=== PATIENT | male | born 1940 | race Caucasian/White ===

== ENCOUNTER → 2019-12-11 15:52 | Outpatient (CLI) | payer MEDICARE, OTHER, SELFPAY ==
--- NOTE | ~2019-12-11 | MR_ITS ---
EXAMINATION: MR knee LT wo con DATE: 12/11/2019 16:52 INDICATION: Left knee pain TECHNIQUE: Magnetic resonance imaging (MRI) of the left knee was performed without intravenous contra st. Sequences included coronal PD-weighted FSE, coronal PD-weighted FS FSE, sagittal T2-weighted FSE , sagittal PD-weighted FS FSE and axial PD weighted fat saturated FSE. COMPARISON: None. FINDINGS: Medial compartment: Mild extrusion of the medial meniscal body. Prominent increased intrasubstance signal which does not unambiguously contact the articular surface at the body of the medial meniscus consistent with myxoid degeneration. The posterior horn appears small which suggests sequela of prior partial meniscectomy. The anterior free edge appears mildly truncated with mild fraying. At the lateral side of the staff writer ior horn there is heterogeneous increased signal which extends to both the cephalad and caudal articu lar which is of less than fluid intensity which remains equivocal for scarring related to prior heale d tear or residual/recurrent tear. Partial-thickness cartilage loss throughout the weightbearing medi al femoral condyle with chondral surface regularity and subtle underlying cortical irregularity with subarticular edema at the central weightbearing medial femoral condyle. Additional partial thickness cartilage loss along the medial tibial plateau with focal fissuring with minimal underlying subarticu lar edema at the anterior aspect of the medial tibial plateau. Small to moderate size marginal osteop hytes are present. Lateral compartment: Less intense increased intrasubstance signal which is not contact the articular surface at the body o f the lateral meniscus consistent with myxoid degeneration without discrete tear. Mild partial thickn ess cartilage loss with smooth chondral surface without degenerative subchondral changes along the la teral margin of the posterior weightbearing lateral femoral condyle. Small to moderate size marginal osteophytes are present. Patellofemoral compartment: Shallow chondral fissuring at the cephalad aspect of the trochlear groove and lateral trochlea. Tiny patellar and small trochlear marginal osteophytes are present. Ligaments and tendons: Anterior and posterior cruciate ligaments are normal. The medial collateral ligament and fibular carmen ateral ligament complex are normal. The extensor mechanism is normal. The visualized medial and later al hamstring tendons as well as the iliotibial band are normal. Fluid: Physiologic amount of fluid in the joint space. No loose osteochondral bodies identified. Small Shea 's cyst. Osseous/other: Normal marrow signal. No fracture or pathologic marrow replacing process. IMPRESSION: 1. Small posterior horn of the medial meniscus suggesting prior partial meniscectomy. Fraying and velma ncation along the free edge and more irregular increased signal near the posterior root, the latter w hich could represent scarring related to prior repaired tear or more likely residual/recurrent comple x tear. 2. 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 3. Small Shea's cyst. Reviewed, dictated and finalized at location A. ER APPLICATOR IMPRESSION: 1. Small posterior horn of the medial meniscus suggesting prior partial menisce ctomy. Fraying and truncation along the free edge and more irregular increased signal near the posterior root, the latter which could represent scarring relat ed to prior repaired tear or more likely residual/recurrent complex tear. 2. Mild medial and patellofemoral compartment predominant tricompartmental oste oarthritis. 3. Small Shea's cyst.
== END ==
PROVIDERS: PCP Internal Medicine; Visit Provider Internal Medicine
DX: M71.21 Synovial cyst of popliteal space [Baker], right knee (principal); M19.012 Primary osteoarthritis, left shoulder; S83.242A Other tear of medial meniscus, current injury, left knee, initial encounter; X58.XXXA Exposure to other specified factors, initial encounter
CPT/HCPCS: 73721

== ENCOUNTER 2023-02-16 11:43 | Outpatient (CLI) | payer MEDICARE, OTHER, SELFPAY ==
[2023-02-16 18:59] LABS: Basophils Absolute Auto 0.1 K/mm3 (0.0-0.1); Basophils Percent Auto 1.2 % (0.2-1.2); Eosinophils Absolute Auto 0.3 K/mm3 (0-0.3); Eosinophils Percent Auto 3.9 % (0-4.4); Hematocrit 43.4 % (42.0-52.0); Hemoglobin 14.6 g/dL (14.0-18.0); Immature Granulocyte Absolute 0.02 K/mm3 (0.00-0.031); Immature Granulocyte Percent A 0.3 % (0-0.5); Lymphocytes Absolute Auto 2.69 K/mm3 (0.9-3.2); Lymphocytes Percent Auto 40.5 % (18.3-44.2); Mean Corpuscular HGB Conc 33.6 g/dl (32-36); Mean Platelet Volume 9.1 fl (7.4-10.4); Monocytes Percent Auto 14.3 % (2.6-8.5); Neutrophils Absolute Auto 2.6 K/mm3 (1.3-6.7); Neutrophils Percent Auto 39.8 % (45.5-73.1); Platelet Count Result 266 k/mm3 (150-375); Red Blood Count 4.43 M/mm3 (4.6-6.20); White Blood Count 6.6 K/mm3 (4.5-10.0)
[2023-02-16 19:28] LABS: Hemoglobin A1C 5.2 % (<5.7)
[2023-02-16 19:35] LABS: Creatinine Urine 72.4 mg/dL
[2023-02-16 19:41] LABS: MALB Creatinine Ratio 34.5 mg/g (0-30)
[2023-02-16 20:21] LABS: Alanine Aminotransferase 29 U/L (6-50); Albumin Level 4.2 g/dL (3.5-5.1); Alkaline Phosphatase 67 U/L (38-126); Anion Gap 7 mmol/L (8-16); Aspartate Amino Transferase 38 U/L (17-59); Bilirubin,Total 0.7 mg/dL (0.2-1.3); Blood Urea Nitrogen 25 mg/dL (9-20); Calcium 9.8 mg/dL (8.4-10.2); Carbon Dioxide 27 mmol/L (22-30); Chloride 105 mmol/L (98-107); Cholesterol 138 mg/dL (0-200); Estimated Glomerular Filt Rate 58; Glucose 99 mg/dL (65-110); HDL Direct 35 mg/dL; Potassium 4.4 mmol/L (3.4-5.0); Sodium 139 mmol/L (137-145); Triglycerides 126 mg/dL (<150)
[2023-02-16 20:32] LABS: LDL Cholesterol Direct 77 mg/dL
[2023-02-16 20:54] LABS: Prostate Specific Antigen 4.1 ng/mL (< OR = 4.0)
== END 2023-02-16 11:44 | disposition home or self-care (01) ==
LOC: ANHGOSHLAB 11:46
PROVIDERS: PCP Family Medicine; Visit Provider Family Medicine
DX: E78.5 Hyperlipidemia, unspecified (principal); I10 Essential (primary) hypertension; E11.9 Type 2 diabetes mellitus without complications; R53.83 Other fatigue; Z12.5 Encounter for screening for malignant neoplasm of prostate
CPT/HCPCS: 36415; 80053; 80061; 82043; 83036; 84153; 85025; G0103

== ENCOUNTER 2023-04-05 12:50 | Outpatient (CLI) | payer MEDICARE, OTHER, SELFPAY ==
[2023-04-05 17:28] LABS: Prostate Specific Antigen 3.7 ng/mL (< OR = 4.0)
== END 2023-04-05 12:51 | disposition home or self-care (01) ==
LOC: ANHPEDOT 12:52 → ANHGOSHLAB 12:55
PROVIDERS: PCP Family Medicine; Visit Provider Family Medicine
DX: R97.20 Elevated prostate specific antigen [PSA] (principal); Z12.5 Encounter for screening for malignant neoplasm of prostate
CPT/HCPCS: 36415; 84153; G0103

== ENCOUNTER 2024-02-15 11:17 | Outpatient (CLI) | payer MEDICARE, OTHER, SELFPAY ==
[2024-02-15 20:19] LABS: Alanine Aminotransferase 22 U/L (6-50); Albumin Level 4.2 g/dL (3.5-5.1); Alkaline Phosphatase 99 U/L (38-126); Anion Gap 6 mmol/L (4-12); Aspartate Amino Transferase 37 U/L (17-59); Bilirubin,Total 0.4 mg/dL (0.2-1.3); Blood Urea Nitrogen 32 mg/dL (9-20); Carbon Dioxide 25 mmol/L (22-30); Chloride 109 mmol/L (98-107); Cholesterol 138 mg/dL (0-200); Estimated Glomerular Filt Rate 53; Glucose 104 mg/dL (65-110); HDL Direct 44 mg/dL; Potassium 4.7 mmol/L (3.4-5.0); Sodium 140 mmol/L (137-145); Triglycerides 114 mg/dL (<150)
[2024-02-15 20:30] LABS: LDL Cholesterol Direct 83 mg/dL
[2024-02-15 20:46] LABS: Hemoglobin A1C 5.3 % (<5.7)
[2024-02-15 20:51] LABS: Prostate Specific Antigen 3.4 ng/mL (< OR = 4.0)
[2024-02-15 20:57] LABS: Creatinine Urine 131.6 mg/dL
[2024-02-15 20:58] LABS: MALB Creatinine Ratio 5.6 mg/g (0-30); Microalbumin Urine Random 7.4 mg/L (0-16.7)
== END 2024-02-15 11:18 | disposition home or self-care (01) ==
LOC: ANHGOSHLAB 11:19
PROVIDERS: PCP Family Medicine; Visit Provider Family Medicine
DX: E11.9 Type 2 diabetes mellitus without complications (principal); I10 Essential (primary) hypertension; Z12.5 Encounter for screening for malignant neoplasm of prostate; Z13.220 Encounter for screening for lipoid disorders; Z13.228 Encounter for screening for other metabolic disorders
CPT/HCPCS: 36415; 80053; 80061; 82043; 83036; 84153; G0103

== ENCOUNTER 2024-05-30 22:58 | Emergency (ER) | payer MEDICARE, OTHER, SELFPAY ==
--- NOTE | ~2024-05-30 | XR_ITS ---
Clinical Indication: Chest pain PA and lateral views of the chest: Comparison: 05/27/2004 Findings: Stable calcified right basilar granuloma. The lungs are otherwise clear, without evidence o f focal consolidation or pleural effusion. Cardiomediastinal silhouette is within normal limits. Bon es and soft tissues are unremarkable. Impression: No acute abnormality. Reviewed, dictated and finalized at location . Impression: No acute abnormality.
[2024-05-30 23:05] VITALS: BP 161/86; PULSE 71; RESP 16; TEMP 36.4; O2SAT 99
--- NOTE | 2024-05-30 23:10 | ECG_ITS ---
Test Date: 2024-05-30 23:07:25 Measurements Intervals [place] Rate: 71 P: 88 NV: 182 QRS: -33 QRSD: 89 T: 44 QT: 366 QTc: 400 Interpretive Statements SINUS RHYTHM MARKED LEFT AXIS DEVIATION [QRS AXIS < -30] POOR R-WAVE PROGRESSION LOW QRS VOLTAGE IN PRECORDIAL LEADS [QRS DEFLECTION < 1.0 mV IN CHEST LEADS] ABNORMAL ECG No previous ECG available for comparison Electronically Signed On 05-31-2024 07:21:31 CDT by Ryan Hannah M.D.
[2024-05-31] MEDS: ASPIRIN 81 MG CHEWABLE TABLET 324 MG PO (01:00)
[2024-05-31 01:02] LABS: Basophils Absolute Auto 0.1 K/mm3 (0.0-0.1); Basophils Percent Auto 0.4 % (0.2-1.2); Hemoglobin 14.2 g/dL (14.0-18.0); Immature Granulocyte Absolute 0.06 K/mm3 (0.00-0.031); Immature Granulocyte Percent A 0.4 % (0-0.5); Lymphocytes Absolute Auto 2.32 K/mm3 (0.9-3.2); Lymphocytes Percent Auto 16.7 % (18.3-44.2); Mean Corpuscular HGB Conc 33.8 g/dl (32-36); Mean Corpuscular Hemoglobin 33.1 pg (26-34); Mean Corpuscular Volume 97.9 fl (80-100); Mean Platelet Volume 9.3 fl (7.4-10.4); Monocytes Percent Auto 7.3 % (2.6-8.5); Neutrophils Absolute Auto 10.5 K/mm3 (1.3-6.7); Neutrophils Percent Auto 75.2 % (45.5-73.1); Platelet Count Result 277 k/mm3 (150-375); Red Blood Count 4.29 M/mm3 (4.6-6.20); Red Cell Distribution Width 11.9 % (11.5-14.5); White Blood Count 13.9 K/mm3 (4.5-10.0)
[2024-05-31 01:12] LABS: Alanine Aminotransferase 20 U/L (6-50); Albumin Level 4.6 g/dL (3.5-5.1); Alkaline Phosphatase 69 U/L (38-126); Anion Gap 13 mmol/L (4-12); Aspartate Amino Transferase 24 U/L (17-59); Bilirubin,Total 0.5 mg/dL (0.2-1.3); Blood Urea Nitrogen 28 mg/dL (9-20); Calcium 10.2 mg/dL (8.4-10.2); Carbon Dioxide 23 mmol/L (22-30); Chloride 100 mmol/L (98-107); Estimated CRCL calculation 43 ml/min; Estimated Glomerular Filt Rate 48; Glucose 165 mg/dL (65-110); Lipase 74 U/L (23-300); Potassium 4.9 mmol/L (3.4-5.0); Sodium 136 mmol/L (137-145)
[2024-05-31 01:24] LABS: INR 1.1; Prothrombin Time 14.6 Seconds (11.1-14.7)
[2024-05-31 01:25] LABS: Partial Thromboplastin Time 26.2 Seconds (22.3-36.8)
[2024-05-31 01:33] LABS: Troponin I < 0.012 ng/mL (0.000-0.034)
[2024-05-31] MEDS: BELLADONNA ALK/PHENOB ELIX 10 ML, MAG HYDROX/ALUMINUM HYD/SIMETH 30 ML, LIDOCAINE HCL 2... PO (02:18)
[2024-05-31] MEDS: MORPHINE SULFATE (*CRX) 4 MG/ML INJ 2 MG IV PUSH (02:18)
[2024-05-31] MEDS: PANTOPRAZOLE SODIUM IV 40 MG VIAL IV PUSH (02:18)
[2024-05-31 03:20] VITALS: BP 171/75; PULSE 69; RESP 15; O2SAT 96
[2024-05-31 03:21] VITALS: PULSE 69
--- NOTE | 2024-05-31 04:02 | ECG_ITS ---
Measurements Intervals [place] Rate: 64 P: 67 NV: 175 QRS: -27 QRSD: 84 T: 27 QT: 369 QTc: 382 Interpretive Statements SINUS RHYTHM LOW QRS VOLTAGE IN PRECORDIAL LEADS [QRS DEFLECTION < 1.0 mV IN CHEST LEADS] POOR R-WAVE PROGRESSION ABNORMAL ELECTROCARDIOGRAM Compared to ECG 05/30/2024 23:07:25 NO SIGNIFICANT DIFFERENCE Electronically Signed On 05-31-2024 07:25:37 CDT by Ryan Hannah M.D. [facility]
[2024-05-31 04:34] LABS: Troponin I < 0.012 ng/mL (0.000-0.034)
--- NOTE | 2024-05-31 05:13 | ED.GENADULT ---
HPI - General Adult General Chief complaint: Chest Pain Stated complaint: chest pain Time Seen by Provider: 05/31/24 01:11 History of Present Illness HPI narrative: Patient is a 3-year-old gentleman who presents emergency department chief complaint of chest discomfort nausea and shortness of breath. The patient reports symptoms started around 6:00 p.m. reports that noted was gas but still feels like pressure. The patient reports no prior history of cardiac disease but does report that he has history of hyperlipidemia hypertension type 2 diabetes and JESU. Related Data Allergies Allergy/AdvReac Type Severity Reaction Status Date / Time No Known Allergies Allergy Verified 02/07/24 14:02 Review of Systems Review of Systems: A 10 system review of systems was completed on the patient and is negative except for what is stated in the HPI. Nursing and ancillary documentation was reviewed. PMFSH Past Medical History Medical History Diabetes Hyperlipemia Hypertension JESU (obstructive sleep apnea) Type 2 diabetes mellitus Surgical History Surgical History H/O adenoidectomy H/O umbilical hernia repair History of tonsillectomy S/P left knee arthroscopy S/P right knee arthroscopy 05/2020 Family History Family History Sibling Family history of arthritis Father Liver disease Hemochromatosis Diabetes mellitus Social History Social History Smoking status: Never smoker Alcohol intake: current Drinks per week: 1 Alcohol use details: Chriss Álvarez Substance use: never Lack of Transportation: No Lack of Food: Never True Current Housing: I Have Housing Concerned About Future Housing: No Difficulty Paying Gas/Electric Bills: No Difficulty Paying for Meds: No Currently Unemployed: No Education: Bachelor's Degree Difficulty w/ Childcare or Family Care: No Living arrangements: with family Occupation/Education: retired Gender identity (if verbalized by the patient): Male Sexual Orientation (if Verbalized by the Patient): Straight or Heterosexual Exam Narrative: GENERAL: Well-appearing, well-nourished, and in no acute distress. HEAD: Normocephalic, atraumatic. EYES: PERRLA and EOMI. ENT: Nares clear, no rhinorrhea or epistaxis. Mucous membranes moist. NECK: Supple. CHEST: Clear to auscultation. No respiratory distress. HEART: Regular rate and rhythm. No murmur heard. Normal peripheral pulses. ABDOMEN: Soft, nontender, nondistended, normal active bowel sounds. EXTREMITIES: Normal range of motion. No edema. SKIN: Warm, dry, no rash. NEURO: No focal deficits. Alert and oriented x3. PSYCH: Normal mood and affect. Course Vital Signs Vital signs: Vital Signs Temperature 36.4 C 05/30/24 23:05 Pulse Rate 71 05/30/24 23:05 Respiratory Rate 16 05/30/24 23:05 Blood Pressure 161/86 H 05/30/24 23:05 Pulse Oximetry 99 05/30/24 23:05 Oxygen Delivery Room Air 05/30/24 23:05 Temperature 36.4 C 05/30/24 23:05 Pulse Rate 69 05/31/24 03:21 Respiratory Rate 15 05/31/24 03:20 Blood Pressure 171/75 H 05/31/24 03:20 Pulse Oximetry 96 05/31/24 03:20 Oxygen Delivery Room Air 05/30/24 23:05 Medical Decision Making MDM Narrative Medical decision making narrative: The ACS, gastroesophageal reflux disease, noncardiac chest pain, pneumothorax, EKG showed rate of [address] elevation or depression Laboratory studies showed a white count of 13.9 electrolytes showed a BUN of 28 creatinine 1.4 troponin was less than 0.012 for 0 hours and 3 hour lipase was normal Vital Signs Vital Signs: Vital Signs Temperature 36.4 C 05/30/24 23:05 Pulse Rate 71 05/30/24 23:05 Respiratory Rate 16 05/30/24
[2024-05-31 05:38] VITALS: BP 171/78; PULSE 65; RESP 14; TEMP 36.8; O2SAT 100
== END 2024-05-31 05:40 | disposition home or self-care (01) ==
PROVIDERS: Emergency Provider Emergency Medicine; PCP Family Medicine
DX: R07.89 Other chest pain (principal); I10 Essential (primary) hypertension; E11.9 Type 2 diabetes mellitus without complications; E78.5 Hyperlipidemia, unspecified; G47.33 Obstructive sleep apnea (adult) (pediatric); Z79.84 Long term (current) use of oral hypoglycemic drugs; Z79.899 Other long term (current) drug therapy; R94.31 Abnormal electrocardiogram [ECG] [EKG]
CPT/HCPCS: 36415; 71046; 80053; 83690; 84484; 85025; 85610; 85730; 93005; 96374; 96375; 99284; A9270; J2270; J2470

== ENCOUNTER 2024-06-20 07:21 | Outpatient (CLI) | payer MEDICARE, OTHER, SELFPAY ==
--- NOTE | ~2024-06-20 | CT_ITS ---
CT of the Abdomen and Pelvis: Indication: Abdominal pain Technique: 2.5 mm axial scans were obtained through the abdomen and pelvis following intravenous adm inistration of 100 cc of Omnipaque 350. Dose reduction technique was used on this scan by utilizing a utomated exposure control and iterative reconstruction technique. The dose-length product (DLP) was 1 098.27 mGy-cm. Findings: Scans through the lung bases demonstrate calcified right middle lobe granuloma. The liver, spleen, pancreas, adrenals and kidneys are within normal limits. Gallbladder is distended with multiple calcified gallstones, and probable mild diffuse gallbladder wall thickening. There are atherosclerotic calcifications of the aorta. No lymphadenopathy. No bowel obstruction or bowel wall thickening. There is no evidence to suggest acute appendicitis. Images through the pelvis were performed. Urinary bladder unremarkable. Prostate gland is significant ly enlarged, and indents the bladder base. No ascites. Bilateral L5 pars interarticularis defects are present, with 8 mm anterolisthesis of L5 over S1. Impression: Cholelithiasis and suspected superimposed acute cholecystitis. Correlate clinically. Consider HIDA sc an as indicated. Markedly enlarged prostate gland. Reviewed, dictated and finalized at location . Impression: Cholelithiasis and suspected superimposed acute cholecystitis. Correlate clinic ally. Consider HIDA scan as indicated. Markedly enlarged prostate gland.
== END 2024-06-20 07:22 | disposition home or self-care (01) ==
PROVIDERS: PCP Family Medicine; Visit Provider Family Medicine
DX: K80.00 Calculus of gallbladder with acute cholecystitis without obstruction (principal); N40.0 Benign prostatic hyperplasia without lower urinary tract symptoms
CPT/HCPCS: 74177; Q9967

== ENCOUNTER 2024-06-28 11:45 | Outpatient (CLI) | payer MEDICARE, OTHER, SELFPAY ==
[2024-06-28 13:22] LABS: Amylase 93 U/L (30-110)
== END 2024-06-28 11:46 | disposition home or self-care (01) ==
PROVIDERS: PCP Family Medicine; Visit Provider Surgery
DX: K80.10 Calculus of gallbladder with chronic cholecystitis without obstruction (principal)
CPT/HCPCS: 36415; 82150

== ENCOUNTER 2024-07-05 11:58 | Inpatient (IN) | payer MEDICARE, OTHER, SELFPAY ==
--- NOTE | 2024-06-27 14:12 | PC.NURSE ---
Report to the Outpatient Waiting Room, entrance under the green pavilion located off [facility], at time 6 AM on date _07/05/24 . Planned Procedure Time: _7:30 AM .? Time changes happen often and if your time is changed the preop area will call you the afternoon before. - You and your visitor will be asked to self-screen and do not enter if you have any COVID symptoms. Please call surgeon if you need to reschedule. - A mask is optional within the hospital at this time. Patients may have clear liquids (water, carbonated beverages, clear teas, apple juice) until 3 hours prior to surgery( 4:30AM) with a maximum of 20 ounces. - No food from midnight until time of surgery and no smoking - Infants may have breast milk until 4 hours before surgery, formula 6 hours prior to surgery. - Children will be allowed to drink immediately following surgery.? If applicable, please bring a bottle or sippy cup to assist with drinking. Juice, water, soda, and popsicles are readily available.? For infants on formula, please bring formula the day of surgery.? Pacifiers are allowed. Take only the following medications with a SIP of water on the morning of surgery: NONE DO NOT STOP ANY OF YOUR OTHER PRESCRIPTION MEDICATIONS PRIOR TO SURGERY EXCEPT THE FOLLOWING Medications to discontinue per physician __HOLD ALL VITAMINS AND SUPPLEMENTS 3 DAYS PRE OP.LAST DOSE 07/01/24 Please no make-up, nail american, hairspray, perfume, deodorant, or body powder the day of surgery.? No jewelry (including any body piercings) or valuables the day of surgery, leave them at home.? Please take a shower or bath the night before, or the morning of, surgery with an antibacterial soap.? Wear comfortable, loose fitting clothing.? Children are encouraged to wear pajamas. - Jewelry must be removed prior to entering the operating room.? Rings and piercings that are not removed may be cut off. - The hospital will not accept responsibility for valuables.? - Please leave all valuables, including medications, at home the day of surgery. If you are going home after surgery, a licensed racing car driver must drive you home.? - NO public transportation without another adult if you receive anesthesia. - We recommend that an adult stay with you for 24 hours following discharge. - We also recommend that you do not drive, make important decision, drink alcoholic beverages, or take any drugs that were not prescribed by your health care provider for at least 24 hours after your discharge time. For Pediatric surgeries, we recommend two adults accompany the child home. Follow any additional instructions given to you from your surgeon. Telephone instructions given to _PT AND MARCE and asked if any additional questions and then verbalized understanding. Patient advised to call surgeon office or pre surgery nurse liaison [phone] if any additional questions.
[2024-06-27 14:19] VITALS: BMI 27.5
[2024-07-05] VITALS (15 sets, daily range): BP systolic 101–148; BP diastolic 59–92; PULSE 69–104; RESP 12–20; TEMP 36.4–37.7; O2SAT 92–100; BMI 27.6
[2024-07-05] MEDS: LACTATED RINGERS 1,000 ML 30 ML IV CONT ×2 (06:45→10:37)
[2024-07-05] MEDS: INDOCYANINE GREEN 25 MG VIAL WITH DILUENT 3.75 MG IV PUSH (07:00)
[2024-07-05] MEDS: KETOROLAC 15 MG/ML VIAL (*BKC) IV PUSH (07:03)
[2024-07-05] MEDS: ACETAMINOPHEN 500 MG TABLET 1000 MG PO (07:03)
--- NOTE | 2024-07-05 07:07 | WPDANESEPPF ---
Anes - Initial Pre Proc Eval Procedure: Operation Date: 07/05/24 07:30 Proposed Procedures p Robotic Assisted Cholecystectomy - Serene Dey MD Date/Time: 07/05/24 07:07 Surgeon: Serene Dey MD Pre Op Diagnosis: chronic cholecystitis Patient Data Age: 83 Gender: M Height: 1.91 m Weight: 99.8 kg Allergies Allergy/AdvReac Type Severity Reaction Status Date / Time No Known Allergies Allergy Verified 07/05/24 07:05 Home Medications Medication Instructions Recorded Confirmed Type metformin 850 mg tablet 850 mg PO DAILY #90 tabs 03/05/24 06/27/24 Rx olmesartan 40 mg tablet 40 mg PO DAILY #90 tabs 06/26/24 06/27/24 Rx ascorbic acid (vitamin C) 500 mg 500 mg PO DAILY 06/27/24 06/27/24 History capsule calcium 600 mg capsule 600 mg PO DAILY 06/27/24 06/27/24 History cholecalciferol (vitamin D3) 50 50 mcg PO DAILY 06/27/24 06/27/24 History mcg (2,000 unit) tablet flaxseed 1,000 mg capsule 1,000 mg PO DAILY 06/27/24 06/27/24 History magnesium 200 mg tablet 400 mg PO HS 06/27/24 06/27/24 History multivitamin (Daily Multi-Vitamin 1 tablet PO DAILY 06/27/24 06/27/24 History tablet) rosuvastatin 40 mg tablet (Crestor) 40 mg PO HS 06/27/24 06/27/24 History vitamin B complex 1 tablet PO DAILY 06/27/24 06/27/24 History vitamin E 400 unit tablet 450 mg PO DAILY 06/27/24 06/27/24 History Patient hx anesthesia problems: none Family hx anesthesia problems: none Results Review: All pre-operative results and documents have been reviewed as part of the pre-operative evaluation. [facility] Past Medical History Medical History Diabetes Hyperlipemia Hypertension JESU (obstructive sleep apnea) Type 2 diabetes mellitus Surgical History Surgical History H/O adenoidectomy H/O umbilical hernia repair History of tonsillectomy S/P left knee arthroscopy S/P right knee arthroscopy 05/2020 Family History Family History Sibling Family history of arthritis Father Liver disease Hemochromatosis Diabetes mellitus Social History Social History Smoking status: Never smoker Alcohol intake: current Drinks per week: 2 Alcohol use details: Chriss Álvarez Substance use: never Lack of Transportation: No Lack of Food: Never True Current Housing: I Have Housing Concerned About Future Housing: No Difficulty Paying Gas/Electric Bills: No Difficulty Paying for Meds: No Currently Unemployed: No Education: Bachelor's Degree Difficulty w/ Childcare or Family Care: No Living arrangements: with family Occupation/Education: retired Gender identity (if verbalized by the patient): Male Sexual Orientation (if Verbalized by the Patient): Straight or Heterosexual Spiritual care concerns: No Anes - Eval Final PreProcedure Day of Procedure 07/05/24 07:07 Patient weight: overweight Heart: regular rate and rhythm Lungs: clear to auscultation Airway: Mallampati scale class II Neurological: alert and oriented Last oral intake: >/= 8 hours ASA classification: III Emergent: no Anesthetic plan: proceed Anesthesia type and monitoring: general ETT and standard monitoring Results Review: All pre-operative results and documents have been reviewed as part of the pre-operative evaluation. Informed Consent: The patient's anesthetic plan and its attendant risks and benefits were discussed with the patient/family/POA. Questions were solicited and answers provided to the satisfaction of the patient/family/POA.
[2024-07-05 07:18] LABS: Glucose Point of Care 122 mg/dl (65-105)
--- NOTE | 2024-07-05 07:23 | WPDHPUPDATE1 ---
History and Physical Update Update Date/Time: 07/05/24 07:23 History and Physical has been reviewed, including an updated exam of the patient. There are NO changes in the patient's condition. Risks, benefits, and alternatives have been discussed and questions answered. Patient agrees to proceed with procedure.
[2024-07-05] MEDS: ceFAZolin 2 GM/D5W 50 ML 2 GM/50 ML BAG IVPB (07:40)
[2024-07-05] MEDS: BUPIVACAINE/EPINEPHRINE 0.5% 10 ML VIAL 30 ML INFILTRATE (07:45)
--- NOTE | 2024-07-05 08:06 | SUR.OPER ---
Blood vial sent with DORIS Rosario and received by Melly
--- NOTE | 2024-07-05 10:29 | W.PM.PROC2 ---
Procedure Note - Detailed Date of Procedure 07/05/24 Pre-op Diagnosis Acute cholecystitis Post-op Diagnosis Other ( severe acute suppurative cholecystitis) Procedure Performed Robotic assisted cholecystectomy, extensive lysis of adhesions Surgeon Serene Dey MD Anesthesia General Indications 83-year-old male presenting to the office complaining of 1 episode of severe right upper quadrant abdominal pain. Workup, including CT, significant for acute cholecystitis, cholelithiasis. Findings Severe acute suppurative cholecystitis Description of Procedure The patient was taken to the operating room and placed in the supine position. After adequate induction of general anesthesia, the patient was prepped and draped in the normal sterile fashion. A time-out was then done to verify the patient's identity, as well as the procedure being performed. I began by making a 8 mm incision in the periumbilical region. A Veress needle was then placed in the peritoneal cavity and CO2 gas was insufflated. After adequate pneumoperitoneum was achieved, the Veress needle was removed and a 8 mm Optiview trocar was placed under direct visualization. Once into the abdominal cavity, the introducer was removed and the laparoscope was placed through this trocar site. Under direct visualization, I placed a further 8 mm port in the left mid abdomen and 2 additional 8 mm ports in the right mid abdomen. The robot was then docked to these ports sites. I then went to the console. A large inflammatory mass was noted in the right upper quadrant. Using very careful dissection with the cautery, I was able to take down these omental adhesions to both the gallbladder and liver. These adhesions were very friable and inflamed. Once dissected, the gallbladder was then identified and noted to be severely inflamed and distended. Given the amount of inflammation and distention, the gallbladder was decompressed with an ovarian needle. An additional 5 mm port was placed in the left lower abdomen to allow physical therapy assistant port and suction. A large amount purulent drainage was noted from the gallbladder. Once decompressed, I was able to place a grasper at the dome of the gallbladder and this was retracted up and over the liver. A 2nd retractor was used to grasp the infundibulum and retracted laterally. This allowed visualization and dissection of the triangle of Calot. There were many omental adhesions to the gallbladder and these were taken down with the cautery. I then began dissection around the triangle Calot. I first identified the cystic duct, I was able to visualize the entirety of the duct from its proximal insertion into the gallbladder to its distal junction with the common hepatic/common bile duct junction. I then used the firefly visualization at this point to confirm the anatomy. The proximal cystic duct was then further skeletonized, clipped, and transected. Next I visualized the cystic artery. Again the structure was skeletonized, clipped, and transected. I then again used firefly to confirm anatomy and no aberrant anatomy was noted. I then used the Bovie cautery to take down the peritoneal attachments of the gallbladder off the liver bed. This was very difficult given the amount of inflammation and friability of the gallbladder wall itself. Some of the back wall of the gallbladder peeled off and was left on the liver bed during dissection. Multiple large stones were noted. Once the gallbladder specimen was completely detached, an Endo pouch was placed through the left 8 mm port site and the gallbladder specimen and stones were placed in the endo-pouch and subsequently removed. Of note, the site was enlarged including the fascial opening to allow removal. I then re-examined the right upper quadrant. Hemostasis was noted in the liver bed and the clips were noted to be in good position on both the duct and the artery. No other pathology was seen in the right upper quadrant. The ri
[2024-07-05 11:05] LABS: Glucose Point of Care 209 mg/dl (65-105)
--- NOTE | 2024-07-05 12:15 | ADMGEN ---
This patient, Man Farah Jr., was admitted to 3 [facility] Surg Room 315-02. Patient/family oriented to hospital policies and general routines including ID bracelet, bed and alarms, visiting hours, pain management, procedures, bathroom and other care routines, personal items, smoking policy, room service/diet, and visiting hours. Information on how to activate the Rapid Response Team has been discussed. Patient/Family are encouraged to report perceived risks to care and to ask questions if they do not understand what they are told or what they should do.
[2024-07-05] MEDS: PIPERACILLN/TAZ 3.375GM/NS50ML 3.375 GM/50 ML BAG IVPB ×3 (12:32→23:42)
[2024-07-05] MEDS: LACTATED RINGERS 1,000 ML 100 ML IV CONT (13:10)
[2024-07-05] MEDS: HYDROcodone/acetaminophen (*CRX) 5-325 MG TABLET 1 TAB PO ×2 (13:11→20:45)
[2024-07-05] MEDS: ROSUVASTATIN 20 MG TABLET 40 MG PO (20:43)
[2024-07-05] MEDS: MAGNESIUM OXIDE 400 MG TABLET PO (20:43)
[2024-07-06 00:11] VITALS: BP 114/59; PULSE 92; RESP 22; TEMP 36.6; O2SAT 94
[2024-07-06] MEDS: HYDROcodone/acetaminophen (*CRX) 5-325 MG TABLET 1 TAB PO ×5 (04:18→22:19)
[2024-07-06 04:21] VITALS: BP 133/72; PULSE 94; RESP 20; TEMP 36.4; O2SAT 94
[2024-07-06] MEDS: PIPERACILLN/TAZ 3.375GM/NS50ML 3.375 GM/50 ML BAG IVPB ×3 (05:39→17:52)
[2024-07-06 07:26] LABS: Hematocrit 34.8 % (42.0-52.0); Hemoglobin 11.3 g/dL (14.0-18.0); Mean Corpuscular HGB Conc 32.5 g/dl (32-36); Mean Corpuscular Hemoglobin 32.5 pg (26-34); Mean Platelet Volume 9.1 fl (7.4-10.4); Platelet Count Result 263 k/mm3 (150-375); Red Blood Count 3.48 M/mm3 (4.6-6.20); Red Cell Distribution Width 12.4 % (11.5-14.5); White Blood Count 11.1 K/mm3 (4.5-10.0)
[2024-07-06 07:40] LABS: Alanine Aminotransferase 40 U/L (6-50); Albumin Level 3.3 g/dL (3.5-5.1); Alkaline Phosphatase 56 U/L (38-126); Anion Gap 10 mmol/L (4-12); Aspartate Amino Transferase 51 U/L (17-59); Bilirubin,Total 0.8 mg/dL (0.2-1.3); Blood Urea Nitrogen 26 mg/dL (9-20); Calcium 8.6 mg/dL (8.4-10.2); Carbon Dioxide 22 mmol/L (22-30); Chloride 101 mmol/L (98-107); Estimated CRCL calculation 38 ml/min; Estimated Glomerular Filt Rate 41; Glucose 142 mg/dL (65-110); Potassium 4.3 mmol/L (3.4-5.0); Sodium 133 mmol/L (137-145)
[2024-07-06] MEDS: OLMESARTAN MEDOXOMIL 20 MG TABLET 40 MG PO (08:20)
[2024-07-06] MEDS: VITAMIN E 400 UNIT CAPSULE PO (08:20)
[2024-07-06] MEDS: VITAMIN B COMPLEX CAPSULE 1 CAP PO (08:20)
[2024-07-06] MEDS: MULTIVITAMINS THERAPEUTIC TAB (*BKC) 1 TABLET PO (08:20)
[2024-07-06] MEDS: ASCORBIC ACID 500 MG TABLET PO (08:20)
[2024-07-06] MEDS: CHOLECALCIFEROL 1,000 UNITS TABLET 2000 UNITS PO (08:20)
[2024-07-06] MEDS: CALCIUM CARBONATE (OSCAL) 500 MG TABLET PO (08:20)
[2024-07-06] MEDS: ENOXAPARIN 40 MG/0.4 ML SYRINGE SUB-Q (08:20)
[2024-07-06 09:43] VITALS: BP 117/59; PULSE 100; RESP 16; TEMP 36.6; O2SAT 93
[2024-07-06 13:43] VITALS: BP 143/69; PULSE 95; RESP 14; TEMP 36.5; O2SAT 101
--- NOTE | 2024-07-06 14:42 | PM.PNGS ---
Progress Note: A&P Assessment and Plan (1) Acute cholecystitis: Code(s): K81.0 - Acute cholecystitis Status: Acute Assessment and Plan: severe cholecystitis, PT eval and tx, cont diet, home likely tomorrow Subjective Subjective Date/Time Seen: 07/06/24 14:42 Interval history: feels ok, still pretty weak, kriss diet, +bowel fxn Review of Systems Review of Systems: All systems reviewed & are unremarkable except as noted in HPI and below Exam Const: General: cooperative, comfortable and no acute distress Resp: Auscultation: diminished lung sounds Cardio: Rate: regular rate Rhythm: regular rhythm GI: Inspection: normal to inspection, distended and incision GI Palp: Yes abdominal tenderness, Yes Soft to palpation and Yes Tenderness to palpation present (GI) Other: JULIANA c mod s/s drainage Objective Data Vital Signs Vital Signs: Vital Signs - 24 hr 07/05/24 17:43 07/05/24 20:32 07/06/24 00:11 Temperature 37.0 C 37.7 C H 36.6 C Pulse Rate 99 104 H 92 Respiratory Rate 17 20 22 H Blood Pressure 128/67 101/59 L 114/59 L Pulse Oximetry 96 95 94 Oxygen Delivery 07/05/24 22:35 07/06/24 04:21 07/06/24 08:00 Temperature 36.4 C Pulse Rate 69 94 Respiratory Rate 20 Blood Pressure 133/72 Pulse Oximetry 92 94 Oxygen Delivery Autopap Room Air 07/06/24 09:43 07/06/24 13:43 Temperature 36.6 C 36.5 C Pulse Rate 100 95 Respiratory Rate 16 14 Blood Pressure 117/59 L 143/69 H Pulse Oximetry 93 101 H Oxygen Delivery Intake/Output Intake/Output: Intake & Output 07/03/24 07/04/24 07/05/24 07/06/24 23:59 23:59 23:59 23:59 Intake Total 2315 1405 Output Total 50 30 Balance 2265 1375 Meds/Results Medications: Active Medications Generic Name Dose Route Start Last Admin Trade Name Freq PRN Reason Stop Dose Admin Hydrocodone Bitart/Acetaminophen 1 tab 07/05/24 11:58 07/06/24 12:46 Hydrocodone/Acetaminophen (*Crx) 5-325 Mg Tablet PO 1 tab Q4H PRN Administration Pain Rated 4-6 Ascorbic Acid 500 mg 07/06/24 09:00 07/06/24 08:20 Ascorbic Acid 500 Mg Tablet PO 500 mg DAILY TEO Administration Calcium Carbonate 500 mg 07/06/24 09:00 07/06/24 08:20 Calcium Carbonate (Oscal) 500 Mg Tablet PO 500 mg QAM TEO Administration Diphenhydramine HCl 25 mg 07/05/24 11:58 Diphenhydramine Hcl Inj 50 Mg/Ml Vial IV PUSH Q6H PRN Itching Enoxaparin Sodium 40 mg 07/06/24 09:00 07/06/24 08:20 Enoxaparin 40 Mg/0.4 Ml Syringe SUB-Q 40 mg DAILY TEO Administration Hydromorphone HCl 1 mg 07/05/24 11:58 Hydromorphone Hcl Inj (*Crx) 1 Mg/Ml Syr IV PUSH Q2H PRN Breakthrough Pain Rated 7-10 or NPO Hydromorphone HCl 0.5 mg 07/05/24 11:58 Hydromorphone Hcl Inj (*Crx) 1 Mg/Ml Syr IV PUSH Q2H PRN Breakthrough Pain Rated 4-6 or NPO Ibuprofen 800 mg in 200 mls @ 400 mls/hr 07/05/24 11:58 Caldolor 800 Mg/200 Ml IVPB Q6H PRN Breakthrough Pain Rated 1-3 or NPO Piperacillin/Tazobactam/Dextrose 3.375 gm in 50 mls @ 100 mls/hr 07/05/24 12:30 07/06/24 12:44 Zosyn 3.375 Gm/Ns 50 Ml IVPB 100 mls/hr Q6HR TEO Administration Magnesium Oxide 400 mg 07/05/24 21:00 07/05/24 20:43 Magnesium Oxide 400 Mg Tablet PO 400 mg HS TEO Administration Metformin HCl 850 mg 07/06/24 09:00 07/06/24 08:20 Metformin Hcl 850 Mg Tablet PO 850 mg DAILY TEO Administration Multivitamins Therapeutic 1 tablet 07/06/24 09:00 07/06/24 08:20 Multivitamins Therapeutic Tab (*Bkc) PO 1 tablet DAILY TEO Administration Naloxone HCl 0.1 mg 07/05/24 11:58 Naloxone Hcl 0.4 Mg/Ml Vial IV PUSH Q2M PRN Opiate Reversal Olmesartan 40 mg 07/06/24 09:00 07/06/24 08:20 Olmesartan Medoxomil 20 Mg Tablet PO 40 mg QAM TEO Administration Ondansetron HCl 4 mg 07/05/24 11:58 Ondansetron Inj 4 Mg/2 Ml Vial IV PUSH Q4H PRN Nausea And Vomiting Chanell
[2024-07-06] MEDS: HYDROmorphone HCL INJ (*CRX) 1 MG/ML SYR IV PUSH (20:12)
[2024-07-06] MEDS: MAGNESIUM OXIDE 400 MG TABLET PO (20:14)
[2024-07-06] MEDS: ROSUVASTATIN 20 MG TABLET 40 MG PO (20:14)
[2024-07-06 20:51] VITALS: BP 136/64; PULSE 114; RESP 28; TEMP 37.2; O2SAT 94
[2024-07-06 23:00] VITALS: PULSE 63; RESP 21; O2SAT 94
[2024-07-07] MEDS: PIPERACILLN/TAZ 3.375GM/NS50ML 3.375 GM/50 ML BAG IVPB ×2 (00:04→05:59)
[2024-07-07] MEDS: HYDROcodone/acetaminophen (*CRX) 5-325 MG TABLET 1 TAB PO ×2 (03:11→08:37)
[2024-07-07 03:49] VITALS: PULSE 66; RESP 26; O2SAT 95
[2024-07-07] MEDS: HYDROmorphone HCL INJ (*CRX) 1 MG/ML SYR IV PUSH (06:03)
[2024-07-07] MEDS: ENOXAPARIN 40 MG/0.4 ML SYRINGE SUB-Q (08:25)
[2024-07-07] MEDS: VITAMIN B COMPLEX CAPSULE 1 CAP PO (08:26)
[2024-07-07] MEDS: OLMESARTAN MEDOXOMIL 20 MG TABLET 40 MG PO (08:26)
[2024-07-07] MEDS: CALCIUM CARBONATE (OSCAL) 500 MG TABLET PO (08:26)
[2024-07-07] MEDS: CHOLECALCIFEROL 1,000 UNITS TABLET 2000 UNITS PO (08:27)
[2024-07-07] MEDS: ASCORBIC ACID 500 MG TABLET PO (08:27)
[2024-07-07] MEDS: MULTIVITAMINS THERAPEUTIC TAB (*BKC) 1 TABLET PO (08:27)
[2024-07-07] MEDS: VITAMIN E 400 UNIT CAPSULE PO (08:27)
--- NOTE | 2024-07-07 10:20 | PM.DS ---
DS: Admitting Diagnosis Discharge Date 07/07/2024 Admitting Diagnosis Chronic calculous cholecystitis, type 2 diabetes, hypertension, obstructive sleep apnea DS: Discharge Diagnosis Discharge Diagnosis (1) Acute cholecystitis: Code(s): K81.0 - Acute cholecystitis Status: Acute (2) Chronic cholecystitis with calculus: Code(s): K80.10 - Calculus of gallbladder with chronic cholecystitis without obstruction Status: Acute (3) Type 2 diabetes mellitus: Qualifiers: Diabetes mellitus longterm insulin use: without terminal makeup operator use Diabetes mellitus complication status: without complication Qualified Code(s): E11.9 - Type 2 diabetes mellitus without complications Code(s): E11.9 - Type 2 diabetes mellitus without complications Status: Acute (4) Hypertension: Qualifiers: Hypertension type: primary hypertension Qualified Code(s): I10 - Essential (primary) hypertension Code(s): I10 - Essential (primary) hypertension Status: Acute (5) Obstructive sleep apnea (adult) (pediatric): Code(s): G47.33 - Obstructive sleep apnea (adult) (pediatric) Status: Acute DS: Summary Hospital Course Reason for hospitalization: Acute cholecystitis Hospital Course: This is an 83-year-old man who presented for robotic assisted laparoscopic cholecystectomy on 07/05/2024. He was found to have evidence of severe acute suppurative cholecystitis and surgery was very technically difficult and required extensive lysis of adhesions around the gallbladder. A drain was placed at the time of surgery and he was admitted to the hospital postoperatively. Antibiotics were continued postoperatively. On postop day 1 he was still feeling very weak but was tolerating his diet. His JULIANA drain was draining minimal serosanguineous output. Activity was gradually advanced as tolerated. On postop day 2 he was tolerating a low-fat diet and was able to get up to use the restroom with minimal assistance. His JULIANA drain continued to be serosanguineous and he was hemodynamically stable. He was discharged on 07/07/2024. JULIANA drain was removed prior to discharge. Status at Discharge Functional status at discharge: independent ambulation Overall status at discharge: patient is progressing back to baseline Time Spent with Patient Time attestation: Total time spent providing and/or coordinating discharge services: Time spent: Less than 30 minutes Exam Const: General: comfortable and no acute distress Orientation/consciousness: patient oriented x3 GI: Inspection: non-distended, incision (Intact with glue) and other (JULIANA drain with minimal serosanguineous output) DS: Data Data Completed and Pending Completed studies during hospitalization: Pending at discharge 07/05/24 07:43 Surgical [PTH] Routine Discharge Plan Discharge Attending physician on discharge: Serene Dey Discharging Clinician: Hector Portillo Patient Disposition: Home, Self-Care Activity: as tolerated Diet: diabetic Wound Care Instructions: incision open to air Discharge Instructions: Remember to use your incentive spirometer during your recovery to promote breathing. DISCHARGE INSTRUCTION SHEET FOR HERNIA, GALLBLADDER AND APPENDIX SURGERIES DR. DEY PATIENT TO TAKE HOME 1. May shower in 24 hours, no soaking in bath x 2weeks. 2. Call office for: Wound increasingly painful or bleeding Vomiting Fever of greater than 101 degrees 3. If no bowel movement for three days, take 1 oz. (30 ml) Milk of Magnesia or MiraLax 17g 1 to 2 times daily. 4. No heavy lifting > 10-15 pounds x 6 weeks for hernia repairs and 2 weeks for laparoscopic cholecystectomy or appendectomy. 5. No driving for 3 days or while taking narcotic pain medications. 6. Ice to surgical site for 48 hours (30 min on, then 30 min off). 7. Up walking 10-30 minutes three jim
== END 2024-07-07 12:00 | disposition home or self-care (01) | DRG 419 ==
LOC: ANH3MEDSUR 12:14
PROVIDERS: Admitting Provider Surgery; PCP Family Medicine; Visit Provider Surgery
PROC: 0FT44ZZ Resection of Gallbladder, Percutaneous Endoscopic Approach (ICD-10-PCS; CPT 47562; principal; 2024-07-05 07:30)
DX: K80.00 Calculus of gallbladder with acute cholecystitis without obstruction (principal); E11.9 Type 2 diabetes mellitus without complications; I10 Essential (primary) hypertension; G47.33 Obstructive sleep apnea (adult) (pediatric)
CPT/HCPCS: 36415; 80053; 82948; 85027; 86850; 86900; 86901; 88304; A9270; G0378; J0690; J1170; J1650; J1885; J2405; J2543; J2704; J3010; J7120

== ENCOUNTER 2024-12-26 08:42 | Outpatient (CLI) | payer MEDICARE, OTHER, SELFPAY ==
--- OUTSIDE RECORDS SUMMARY | 2024-12-26 09:01 | XMS_ITS | Encounter Summary ---
Author Organization [facility] Address [address] [place] [address] Care Team Providers Care Credit Control Officer Name Role Phone Unavailable Primary Care Provider Unavailabl e Encounter Details Date Type Department Care Team (Late st Contact Info) Description 02/17/2024 Lab Requisition [facility] - DermPath Lab [address] [place] [address] Jose F Vázquez MD [facility] DERMATOLOGY [address] [place] [phone] Neoplasm of uncertain behavior of skin Social History Tobacco Use Types Packs/Day Years Used Date Smoking Tobacco: Never Assessed Sex and Gender Information Value Date Recorded Sex Assigned at Not on file Gender Identity Not on file Sexual Orientation Not on file documented as of this encounter Plan of Treatment Not on file documented as of this encounter Procedures Procedure Name Priority Date/Time Associated Diagnosis Comments DERMATOPATHOLOGY Routine 02/17/2024 12:0 0 AM CDT Neoplasm of uncertain behavior of skin documented in this encounter Results * DERMATOPATHOLOGY (02/17/2024 12:00 AM CDT) Case Report Dermatopathology Report Case: [id number] Authorizing Provider: Jose F Vázquez MD Collected: 02/17/2024 12:00 AM Ordering Location: [facility] - Received: 02/20/2024 02:03 PM DermPath Lab Pathologist: Yessenia Van MD Specimen: Skin, right dorsal hand 5:14 PM CDT DERMATOPATHOLOGY LABORATORY Final Diagnosis Specimen A. SKIN, right dorsal hand: SEBORRHEIC KERATOSIS, MACULAR (L82.1) 5:14 PM CDT DERMATOPATHOLOGY LABORATORY Clinical History Neoplasm of Uncertain Behavior vs. Melanoma vs. Atypical Pigmented Lesion vs. Lentigo 5:14 PM CDT DERMATOPATHOLOGY LABORATORY Gross Description Specimen A: Received is one formalin filled container labeled with the patient's name and designated right dorsal hand. The specimen consists of a shave biopsy measuring 84u90p3 mm. Jar 0. 5:14 PM CDT DERMATOPATHOLOGY LABORATORY Microscopic Description Specimen A. SKIN, right dorsal hand: Sections show a relatively broad, flat proliferation of small keratinocytes. The surface is gently papillated, and there is increased basilar pigmentation. 5:14 PM CDT DERMATOPATHOLOGY LABORATORY Disclaimer An external and internal positive and negative controls are appropriate for the histochemical, immunohistochemical and immunofluorescence stain(s) in this case (if any), except where stated explicitly. The performance characteristics of the stain(s) cited in this report were developed and its performance characteristic determined by the Dermatopathology Laboratory at [facility], directed by Dr. Marce Osborne. These tests need not be, and therefore are not, approved by the [place] Food and Drug Administration. The tests are used for clinical purposes. Billing Codes Specimen Charges Stain Charges 07390 1 5:14 PM CDT DERMATOPATHOLOGY LABORATORY Embedded Images 5:14 PM CDT DERMATOPATHOLOGY LABORATORY Pathology/Cytolog y TISSUE SPECIMEN FROM SKIN / Unknown 02/17/2024 02/20/2024 2:03 PM CDT Jose F Vázquez MD LAB - PATHOLOGY/CYTO LOGY ORDERABLES DERMATOPATHOLOGY LABORATORY [facility] - Department of Dermatology [address], [address] [phone] documented in this encounter Visit Diagnoses Diagnosis Neoplasm of uncertain behavior of skin documented in this encounter
--- OUTSIDE RECORDS SUMMARY | 2024-12-26 09:01 | XMS_ITS | Clinical Summary ---
Author Organization [facility] Address [address] [place] [address] Care Team Providers Care Granite Polisher Apprentice Name Role Phone Unavailable Primary Care Provider Unavailabl e Source Comments [facility],non-owned Affiliates and Associated Physician Practices is amultiple site organization consisting of ambulatory clinics and hospital sitesin [place], [place], [place] and [place]. This disclosure is being madepursuant to the Care Everywhere program and may not contain all information available regarding this patient. Last updated 18.[facility] [employer] Social History Tobacco Use Types Packs/Day Years Used Date Smoking Tobacco: Never Assessed Sex and Gender Information Value Date Recorded Sex Assigned at Not on file Gender Identity Not on file Sexual Orientation Not on file Plan of Treatment Health Maintenance Due Date Last Done Comments MEDICARE AWV 12 MONTHS 1940 DTAP/TDAP/TD VACCINES (1 - Tdap) 1959 PNEUMOCOCCAL VACCINE 50+ (1 of 1 - PCV) 1990 ZOSTER VACCINE (1 of 2) 1990 Respiratory Syncytial Virus (RSV) Vaccine Pt: or over 60 yrs (1 - 1-dose 75+ series) 2015 COVID-19 VACCINE ( - 2023-2 5 season) 2024 INFLUENZA VACCINE (#1) 2024 DEPRESSION SCREENING 10/24/2024 HEPATITIS B VACCINE Aged Out No longe r eligible based on patient's age to complete this topic HIB VACCINE Aged Out No longer eligi ble based on patient's age to complete this topic HPV VACCINE Aged Out No longer eligi ble based on patient's age to complete this topic MENINGOCOCCAL (Group B) VACCINE Aged Out No longer eligible based on patient's age to complete this topic MENINGOCOCCAL VACCINE Aged Out No mike evelin eligible based on patient's age to complete this topic Man Farah Jr. Personal/Family Self 1940
--- OUTSIDE RECORDS SUMMARY | 2024-12-26 09:01 | XMS_ITS | Patient Health Summary ---
Author Organization [facility] Address [address] [place] [address] Care Team Providers Care Alcohol And Drug Counselor Name Role Phone Unavailable Primary Care Provider Unavailabl e Note from [facility],non-owned Affiliates and Associated Physician Practices is amultiple site organization consisting of ambulatory clinics and hospital sitesin [place], [place], [place] and [place]. This disclosure is being madepursuant to the Care Everywhere program and may not contain all information available regarding this patient. Last updated 18.[facility] [employer] Social History Tobacco Use Types Packs/Day Years Used Date Smoking Tobacco: Never Assessed Sex and Gender Information Value Date Recorded Sex Assigned at Not on file Gender Identity Not on file Sexual Orientation Not on file Procedures * DERMATOPATHOLOGY(Performed 02/17/2024) Performed for Neoplasm of uncertain behavior of skin Results * DERMATOPATHOLOGY (02/17/2024 12:00 AM CDT) Case Report Dermatopathology Report Case: [id number] Authorizing Provider: Jose F Vázquez MD Collected: 02/17/2024 12:00 AM Ordering Location: [facility] - Received: 02/20/2024 02:03 PM DermPath Lab Pathologist: Yessenia Van MD Specimen: Skin, right dorsal hand 4 5:14 PM CDT DERMATOPATHOLOGY LABORATORY Final Diagnosis Specimen A. SKIN, right dorsal hand: SEBORRHEIC KERATOSIS, MACULAR (L82.1) 4 5:14 PM CDT DERMATOPATHOLOGY LABORATORY Clinical History Neoplasm of Uncertain Behavior vs. Melanoma vs. Atypical Pigmented Lesion vs. Lentigo 4 5:14 PM CDT DERMATOPATHOLOGY LABORATORY Gross Description Specimen A: Received is one formalin filled container labeled with the patient's name and designated right dorsal hand. The specimen consists of a shave biopsy measuring [id number] mm. Jar 0. 4 5:14 PM T DERMATOPATHOLOGY LABORATORY Microscopic Description Specimen A. SKIN, right dorsal hand: Sections show a relatively broad, flat proliferation of small keratinocytes. The surface is gently papillated, and there is increased basilar pigmentation. 4 5:14 PM T DERMATOPATHOLOGY LABORATORY Disclaimer An external and internal positive and negative controls are appropriate for the histochemical, immunohistochemical and immunofluorescence stain(s) in this case (if any), except where stated explicitly. The performance characteristics of the stain(s) cited in this report were developed and its performance characteristic determined by the Dermatopathology Laboratory at [facility], directed by Dr. Marce Osborne. These tests need not be, and therefore are not, approved by the [place] Food and Drug Administration. The tests are used for clinical purposes. Billing Codes Specimen Charges Stain Charges 29736 1 4 5:14 PM CDT DERMATOPATHOLOGY LABORATORY Embedded Images 4 5:14 PM CDT DERMATOPATHOLOGY LABORATORY Pathology/Cytolog y TISSUE SPECIMEN FROM SKIN / Unknown 02/17/2024 02/20/2024 2:03 PM CDT Jose F Vázquez MD LAB - PATHOLOGY/CYTO LOGY ORDERABLES DERMATOPATHOLOGY LABORATORY [facility] - Department of Dermatology [address] [phone]
--- OUTSIDE RECORDS SUMMARY | 2024-12-26 09:01 | XMS_ITS | Referral Summary ---
Author Organization [facility] Address [address] [place] [address] Care Team Providers Care Farm Helper Name Role Phone Unavailable Primary Care Provider Unavailabl e Source Comments [facility],non-owned Affiliates and Associated Physician Practices is amultiple site organization consisting of ambulatory clinics and hospital sitesin [place], [place], [place] and [place]. This disclosure is being madepursuant to the Care Everywhere program and may not contain all information available regarding this patient. Last updated 18.[facility] Social History Tobacco Use Types Packs/Day Years Used Date Smoking Tobacco: Never Assessed Sex and Gender Information Value Date Recorded Sex Assigned at Not on file Gender Identity Not on file Sexual Orientation Not on file Plan of Treatment Not on file Man Farah Jr. Personal/Family Self 1940
[2024-12-26 12:57] LABS: Alanine Aminotransferase 26 U/L (6-50); Albumin Level 4.1 g/dL (3.5-5.1); Alkaline Phosphatase 108 U/L (38-126); Anion Gap 8 mmol/L (4-12); Aspartate Amino Transferase 96 U/L (17-59); Bilirubin,Total 0.4 mg/dL (0.2-1.3); Blood Urea Nitrogen 34 mg/dL (9-20); Calcium 9.8 mg/dL (8.4-10.2); Carbon Dioxide 28 mmol/L (22-30); Chloride 104 mmol/L (98-107); Cholesterol 115 mg/dL (0-200); Estimated Glomerular Filt Rate 52; Glucose 114 mg/dL (65-110); HDL Direct 38 mg/dL; Potassium 4.6 mmol/L (3.4-5.0); Sodium 140 mmol/L (137-145); Triglycerides 79 mg/dL (<150)
[2024-12-26 13:03] LABS: Basophils Absolute Auto 0.1 K/mm3 (0.0-0.1); Basophils Percent Auto 1.3 % (0.2-1.2); Eosinophils Absolute Auto 0.3 K/mm3 (0-0.3); Eosinophils Percent Auto 3.6 % (0-4.4); Hematocrit 40.3 % (42.0-52.0); Hemoglobin 13.1 g/dL (14.0-18.0); Immature Granulocyte Absolute 0.02 K/mm3 (0.00-0.031); Immature Granulocyte Percent A 0.3 % (0-0.5); Lymphocytes Absolute Auto 2.75 K/mm3 (0.9-3.2); Lymphocytes Percent Auto 34.5 % (18.3-44.2); Mean Corpuscular HGB Conc 32.5 g/dl (32-36); Mean Corpuscular Hemoglobin 31.9 pg (26-34); Mean Corpuscular Volume 98.1 fl (80-100); Mean Platelet Volume 9.3 fl (7.4-10.4); Monocytes Absolute Auto 0.9 K/mm3 (0.1-0.6); Monocytes Percent Auto 10.8 % (2.6-8.5); Neutrophils Percent Auto 49.5 % (45.5-73.1); Platelet Count Result 367 k/mm3 (150-375); Red Blood Count 4.11 M/mm3 (4.6-6.20); Red Cell Distribution Width 12.9 % (11.5-14.5)
[2024-12-26 13:09] LABS: LDL Cholesterol Direct 49 mg/dL
[2024-12-26 13:28] LABS: Prostate Specific Antigen 4.2 ng/mL (< OR = 4.0)
[2024-12-26 14:00] LABS: MALB Creatinine Ratio < 6.7 mg/g (0-30); Microalbumin Urine Random < 6.0 mg/L (0-16.7)
[2024-12-26 14:19] LABS: Vitamin D 25 Hydroxy 89.9 ng/mL
[2024-12-26 14:21] LABS: Hemoglobin A1C 5.8 % (<5.7)
== END 2024-12-26 08:43 | disposition home or self-care (01) ==
PROVIDERS: PCP Family Medicine; Visit Provider Family Medicine
DX: E11.9 Type 2 diabetes mellitus without complications (principal); I10 Essential (primary) hypertension; Z12.5 Encounter for screening for malignant neoplasm of prostate; E78.5 Hyperlipidemia, unspecified; E53.8 Deficiency of other specified B group vitamins; E55.9 Vitamin D deficiency, unspecified
CPT/HCPCS: 36415; 80053; 80061; 82043; 82306; 82607; 83036; 84153; 84443; 85025; G0103

== ENCOUNTER 2025-02-06 12:38 | Outpatient (CLI) | payer MEDICARE, OTHER, SELFPAY ==
--- OUTSIDE RECORDS SUMMARY | 2025-02-06 13:38 | XMS_ITS | Clinical Summary ---
Author Organization [facility] Address [address] [place] [address] Care Team Providers Care Chocolate Temperer Name Role Phone Unavailable Primary Care Provider Unavailabl e Source Comments [facility],non-owned Affiliates and Associated Physician Practices is amultiple site organization consisting of ambulatory clinics and hospital sitesin [place], [place], [place] and [place]. This disclosure is being madepursuant to the Care Everywhere program and may not contain all information available regarding this patient. Last updated 18.[facility] [employer] Social History Tobacco Use Types Packs/Day Years Used Date Smoking Tobacco: Never Assessed Sex and Gender Information Value Date Recorded Sex Assigned at Not on file Legal Sex Male 11:12 AM CDT Gender Identity Not on file Sexual Orientation [...] VACCINE ( - 2023-2 5 season) 2024 DEPRESSION SCREENING 10/24/2024 INFLUENZA VACCINE (Season Ended) 2025 HEPATITIS B VACCINE Aged Out No longe r eligible based on patient's age to complete this topic HIB VACCINE Aged Out No longer eligi ble based on patient's age to complete this topic HPV VACCINE Aged Out No longer eligi ble based on patient's age to complete this topic MENINGOCOCCAL (Group B) VACC INE SHARED DECISION-MAKING Aged Out No longer eligibl e based on patient's age to complete this topic MENINGOCOCCAL GROUPS A/C/Y/W VACCINE Aged Out No longer eligible b ased on patient's age to complete this topic Insurance MEDICARE SELF PAY NO INSURANCE Member Subscriber Plan / Payer (Ef fective for All Dates) Name:Man Farah Jr. Member ID:Not on file Relation to Subscriber:Not on file Name:MAN FARAH Subscriber ID:Not on file (Home) Address: [address] [place] [id number] Payer ID:Not on file Group ID:Not on file Type:Self Pay Address: [place], [place]
--- OUTSIDE RECORDS SUMMARY | 2025-02-06 13:38 | XMS_ITS | Encounter Summary ---
Author Organization [facility] Address [address] [place] [address] Care Team Providers Care Park Interpreter Name Role Phone Unavailable Primary Care Provider Unavailabl e Encounter Details Date Type Department Care Team (Late st Contact Info) Description 02/17/2024 Lab Requisition [facility] - DermPath Lab [address] [place] [phone] Jose F Vázquez MD [facility] DERMATOLOGY [address] [place] [phone] Neoplasm of uncertain behavior of skin [...] AM CDT) Case Report Dermatopathology Report Case: [id number] Authorizing Provider: Jose F Vázquez MD Collected: 02/17/2024 12:00 AM Ordering Location: [facility] - Received: 02/20/2024 02:03 PM [...] specimen consists of a shave biopsy measuring [id number] mm. Jar 0. 4 5:14 PM CDT DERMATOPATHOLOGY LABORATORY Microscopic Description [...] characteristic determined by the Dermatopathology Laboratory at [facility], directed by Dr. Marce Osborne. These tests need not be, and therefore are not, approved by the [place] Food and Drug Administration. The tests are used for clinical purposes. Billing Codes Specimen Charges Stain Charges 53250 1 4 5:14 PM CDT DERMATOPATHOLOGY LABORATORY Embedded Images 4 5:14 PM CDT DERMATOPATHOLOGY LABORATORY Pathology/Cytolog y TISSUE SPECIMEN FROM SKIN / Unknown 02/17/2024 02/20/2024 2:03 PM CDT us Jose F Vázquez MD LAB - PATHOLOGY/CYTOLOGY NURYS RON Final Result DERMATOPATHOLOGY LABORATORY [facility] - Department of Dermatology [address] [phone] documented in this encounter Visit Diagnoses Diagnosis Neoplasm of uncertain behavior of skin documented in this encounter
[2025-02-06 20:18] LABS: Alanine Aminotransferase 21 U/L (6-50); Albumin Level 4.2 g/dL (3.5-5.1); Alkaline Phosphatase 86 U/L (38-126); Anion Gap 7 mmol/L (4-12); Aspartate Amino Transferase 29 U/L (17-59); Bilirubin,Total 0.4 mg/dL (0.2-1.3); Blood Urea Nitrogen 31 mg/dL (9-20); Calcium 9.6 mg/dL (8.4-10.2); Carbon Dioxide 27 mmol/L (22-30); Chloride 104 mmol/L (98-107); Estimated Glomerular Filt Rate 50; Glucose 101 mg/dL (65-110); Potassium 4.8 mmol/L (3.4-5.0); Sodium 138 mmol/L (137-145)
== END 2025-02-06 12:39 | disposition home or self-care (01) ==
LOC: ANHGOSHLAB 12:40
PROVIDERS: PCP Family Medicine; Visit Provider Family Medicine
DX: R74.01 Elevation of levels of liver transaminase levels (principal); I10 Essential (primary) hypertension
CPT/HCPCS: 36415; 80053

== ENCOUNTER 2025-06-26 15:22 | Outpatient (CLI) | payer MEDICARE, OTHER, SELFPAY ==
--- OUTSIDE RECORDS SUMMARY | 2025-06-26 16:49 | XMS_ITS | Clinical Summary ---
Author Organization [facility] Address [address] [facility] [place] [address] Care Team Providers Care Accounts Payable Bookkeeper Name Role Phone Unavailable Primary Care Provider Unavailabl e Source Comments [facility],non-owned Affiliates and Associated Physician Practices is amultiple site organization consisting of ambulatory clinics and hospital sitesin [place], [place], [place] and [place]. This disclosure is being madepursuant to the Care Everywhere program and may not contain all information available regarding this patient. Last updated 18.[facility] [email or web address] Social History Tobacco Use Types Packs/Day Years [...] season) 2024 DEPRESSION SCREENING 10/24/2024 INFLUENZA VACCINE (#1) 2025 HEPATITIS B VACCINE Aged Out No [...] Subscriber ID:Not on file (Home) Address: [address] [place] [phone] Payer ID:Not on file Group ID:Not on file Type:Self Pay Address: [place], [place]
--- OUTSIDE RECORDS SUMMARY | 2025-06-26 16:49 | XMS_ITS | Encounter Summary ---
Author Organization [facility] Address [address] [place] [address] Care Team Providers Care Road Monkey Name Role Phone Unavailable Primary Care Provider Unavailabl e Encounter Details Date Type Department Care Team (Late st Contact Info) Description 02/17/2024 Lab Requisition [facility] - DermPath Lab [address] [place] [address] Jose F Vázquez MD [facility] D[facility]MAT[facility] [address] [place] [phone] Neoplasm of uncertain behavior of skin [...] AM CDT) Case Report Dermatopathology Report Case: [id number] Authorizing Provider: Jose F Vázquez MD Collected: 02/17/2024 12:00 AM Ordering Location: [facility] - Received: 02/20/2024 02:03 PM DermPath Lab Pathologist: Yessenia Van MD Specimen: Skin, right dorsal hand 5:14 PM CDT DERMATOPATHOLOGY LABORATORY Final Diagnosis Specimen A. SKIN, right dorsal hand: SEBORRHEIC KERATOSIS, MACULAR (L82.1) 4 5:14 PM CDT DERMATOPATHOLOGY LABORATORY at 1714 CDT Clinical History Neoplasm of Uncertain Behavior vs. Melanoma vs. Atypical Pigmented Lesion vs. Lentigo 4 5:14 PM CDT DERMATOPATHOLOGY LABORATORY Gross Description Specimen A: Received is one formalin filled container labeled with the patient's name and designated right dorsal hand. The specimen consists of a shave biopsy measuring [id number] mm. Jar 0. 4 5:14 PM CDT DERMATOPATHOLOGY LABORATORY Microscopic Description Specimen A. SKIN, right dorsal hand: Sections show a relatively broad, flat proliferation of small keratinocytes. The surface is gently papillated, and there is increased basilar pigmentation. 4 5:14 PM CDT DERMATOPATHOLOGY LABORATORY Disclaimer An external and internal positive and negative controls are appropriate for the histochemical, immunohistochemical and immunofluorescence stain(s) in this case (if any), except where stated explicitly. The performance characteristics of the stain(s) cited in this report were developed and its performance characteristic determined by the Dermatopathology Laboratory at [facility], directed by Dr. Marce Osborne. These tests need not be, and therefore are not, approved by the [place] Food and Drug Administration. The tests are used for clinical purposes. Billing Codes Specimen Charges Stain Charges 48440 1 4 5:14 PM CDT DERMATOPATHOLOGY LABORATORY Embedded Images 4 5:14 PM CDT DERMATOPATHOLOGY LABORATORY Pathology/Cytolog y TISSUE SPECIMEN FROM SKIN / Unknown 02/17/2024 02/20/2024 2:03 PM CDT us Jose F Vázquez MD LAB - PATHOLOGY/CYTOLOGY NURYS RON Final Result DERMATOPATHOLOGY LABORATORY [facility] - Department of Dermatology [address], [address] [phone] documented in this encounter Visit Diagnoses Diagnosis Neoplasm of uncertain behavior of skin documented in this encounter
[2025-06-26 18:40] LABS: Alanine Aminotransferase 21 U/L (6-50); Albumin Level 4.2 g/dL (3.5-5.1); Alkaline Phosphatase 99 U/L (38-126); Anion Gap 9 mmol/L (4-12); Aspartate Amino Transferase 32 U/L (17-59); Bilirubin,Total 0.5 mg/dL (0.2-1.3); Blood Urea Nitrogen 29 mg/dL (9-20); Calcium 10.5 mg/dL (8.4-10.2); Carbon Dioxide 25 mmol/L (22-30); Chloride 102 mmol/L (98-107); Estimated Glomerular Filt Rate 52; Glucose 89 mg/dL (65-110); Potassium 5.4 mmol/L (3.4-5.0); Sodium 136 mmol/L (137-145); Total Protein 7.3 g/dL (6.3-8.2)
[2025-06-26 19:03] LABS: Hemoglobin A1C 5.8 % (<5.7)
[2025-06-26 19:16] LABS: Prostate Specific Antigen 4.8 ng/mL (< OR = 4.0)
== END 2025-06-26 15:23 | disposition home or self-care (01) ==
LOC: ANHGOSHLAB 15:23
PROVIDERS: PCP Family Medicine; Visit Provider Family Medicine
DX: E11.9 Type 2 diabetes mellitus without complications (principal); E55.9 Vitamin D deficiency, unspecified; I10 Essential (primary) hypertension; Z12.5 Encounter for screening for malignant neoplasm of prostate; R97.20 Elevated prostate specific antigen [PSA]
CPT/HCPCS: 36415; 80053; 82306; 83036; 84153; G0103

== ENCOUNTER 2025-07-25 13:10 | Outpatient (CLI) | payer MEDICARE, OTHER, SELFPAY ==
--- OUTSIDE RECORDS SUMMARY | 2025-07-25 13:14 | XMS_ITS | Encounter Summary ---
Author Organization [facility] Address [address] [place] [address] Care Team Providers Care Curriculum Writer Name Role Phone Unavailable Primary Care Provider Unavailabl e Encounter Details Date Type Department Care Team (Late st Contact Info) Description 02/17/2024 Lab Requisition [facility] - DermPath Lab [address] [place] [address] Jose F Vázquez MD [facility] DERMATOLOGY [address] [place] [phone] Neoplasm of uncertain behavior of skin [...] AM CDT) Case Report Dermatopathology Report Case: [id number] Authorizing Provider: Jose F Vázquez MD Collected: 02/17/2024 12:00 AM Ordering Location: [facility] - Received: [...] specimen consists of a shave biopsy measuring [id number] mm. Jar 0. 4 5:14 PM CDT [...] characteristic determined by the Dermatopathology Laboratory at [facility], directed by Dr. Marce Osborne. These tests need not be, and therefore are not, approved by the [place] Food and Drug Administration. The tests are used for clinical purposes. Billing Codes Specimen Charges Stain Charges 79579 1 4 5:14 PM CDT DERMATOPATHOLOGY LABORATORY Embedded Images 4 5:14 PM CDT DERMATOPATHOLOGY LABORATORY Pathology/Cytolog y TISSUE SPECIMEN FROM SKIN / Unknown 02/17/2024 02/20/2024 2:03 PM CDT us Jose F Vázquez MD LAB - PATHOLOGY/CYTOLOGY NURYS RON Final Result DERMATOPATHOLOGY LABORATORY [facility] - Department of Dermatology [address] [phone] documented in this encounter Visit Diagnoses Diagnosis Neoplasm of uncertain behavior of skin documented in this encounter
--- OUTSIDE RECORDS SUMMARY | 2025-07-25 13:14 | XMS_ITS | Clinical Summary ---
Author Organization [facility] Address [address] [place] [address] Care Team Providers Care Chief Recordist Name Role Phone Unavailable Primary Care Provider Unavailabl e Source Comments [facility],non-owned Affiliates and Associated Physician Practices is amultiple site organization consisting of ambulatory clinics and hospital sitesin [place], [place], [place] and [place]. This disclosure is being madepursuant to the Care Everywhere program and may not contain all information available regarding this patient. Last updated 18.[facility] [employer] Social History Tobacco Use Types Packs/Day Years [...] yrs (1 - 1-dose 75+ series) 2015 DEPRESSION SCREENING 10/24/2024 COVID-19 VACCINE ( - 2023-2 5 season) 2025 INFLUENZA VACCINE (#1) 2025 HEPATITIS B VACCINE [...] age to complete this topic Insurance MEDICARE [employer] Address: [address] [phone] SELF PAY NO INSURANCE Member Subscriber Plan / Payer (Ef fective for All Dates) Name:Man Farah Jr. Member ID:Not on file Relation to Subscriber:Not on file Name:MAN FARAH Subscriber ID:Not on file (Home) Address: [address] [place] [phone] Payer ID:Not on file Group ID:Not on file Type:Self Pay Address: [place], [place]
[2025-07-25 19:11] LABS: Alanine Aminotransferase 16 U/L (6-50); Albumin Level 4.0 g/dL (3.5-5.1); Alkaline Phosphatase 71 U/L (38-126); Anion Gap 7 mmol/L (4-12); Aspartate Amino Transferase 38 U/L (17-59); Bilirubin,Total 0.4 mg/dL (0.2-1.3); Blood Urea Nitrogen 24 mg/dL (9-20); Calcium 9.6 mg/dL (8.4-10.2); Carbon Dioxide 26 mmol/L (22-30); Chloride 102 mmol/L (98-107); Estimated Glomerular Filt Rate 51; Glucose 95 mg/dL (65-110); Potassium 4.5 mmol/L (3.4-5.0); Sodium 135 mmol/L (137-145); Total Protein 6.9 g/dL (6.3-8.2)
[2025-07-25 19:28] LABS: Parathyroid Intact 35.3 pg/mL (14.5-75.2)
== END 2025-07-25 13:11 | disposition home or self-care (01) ==
LOC: ANHGOSHLAB 13:12
PROVIDERS: PCP Family Medicine; Visit Provider Family Medicine
DX: E87.5 Hyperkalemia (principal); I10 Essential (primary) hypertension; E83.52 Hypercalcemia
CPT/HCPCS: 36415; 80053; 83970